=== PATIENT | male | born 2000 | race Hispanic/Latino ===

== ENCOUNTER 2023-07-02 18:43 | Inpatient (IN) | payer OTHER ==
[~2023-07-02] VITALS: Ht 167.6 cm; Wt 107.0 kg
[2023-07-02] MEDS: 0.9%NACL 1000ML 1,000 ML IV SCH ×2 (19:14→23:30)
[2023-07-02 19:23] LABS: BASOPHILS # (AUTO) 0.05 K/uL (0.00-0.20); BASOPHILS % (AUTO) 0.2 % (0.0-5.0); EOSINOPHILS # (AUTO) 0.09 K/uL (0.00-0.70); EOSINOPHILS % (AUTO) 0.4 % (0.0-8.0); HEMATOCRIT 49.3 % (42-54); IMMATURE GRANULOCYTE ABSOLUTE 0.08 K/uL (0-1); LYMPHOCYTES # (AUTO) 1.2 K/uL (1.0-4.8); LYMPHOCYTES % (AUTO) 6.1 % (21.0-51.0); MEAN CORPUSCULAR HEMOGLOBIN 29.7 pg (27.0-33.0); MEAN CORPUSCULAR HGB CONC 35.3 g/dL (32.0-36.0); MEAN CORPUSCULAR VOLUME 84.1 fL (79-99); MONOCYTES # (AUTO) 2.5 K/uL (0.1-1.0); NEUTROPHILS # (AUTO) 16.5 K/uL (1.8-7.7); NEUTROPHILS % (AUTO) 80.9 % (40.0-77.0); PLATELET COUNT (AUTO) 175 K/uL (130-400); RED BLOOD CELL COUNT(AUTO) 5.86 MIL/uL (4.50-6.20); RED CELL DISTRIBUTION WIDTH 13.1 % (11.0-15.5); WHITE BLOOD COUNT (AUTO) 20.5 K/uL (4.8-10.8)
[2023-07-02] MEDS ORDERED: ACETAMINOPHEN 500 MG TABLET PO ONE (19:30)
[2023-07-02] MEDS ORDERED: ONDANSETRON 4MG INJ IVP ONE (19:30)
[2023-07-02 19:31] LABS: ADD UA MICROSCOPIC YES; APPEARANCE,URINE CLEAR (CLEAR); BILIRUBIN,URINE 0.5 mg/dL (NEGATIVE); COLOR,URINE YELLOW (YELLOW); GLUCOSE, URINE (UA) NEGATIVE (NEGATIVE); KETONES,URINE 40 mg/dL (NEGATIVE); LEUKOCYTE ESTERASE ,URINE NEGATIVE Leu/uL (NEGATIVE); NITRATE,URINE NEGATIVE (NEGATIVE); OCCULT BLOOD,URINE SMALL (NEGATIVE); PROTEIN,URINE 50 mg/dL (NEGATIVE); UROBILINOGEN,URINE 12 mg/dL (0.2-1.0)
[2023-07-02 19:32] LABS: BACTERIA,URINE FEW /HPF (None Seen); MUCUS,URINE MOD LPF (None Seen); SQUAMOUS EPITHELIAL CELL,UR RARE /HPF (0-2)
[2023-07-02 19:40] LABS: CREATININE 0.8 mg/dL (0.5-1.5); POTASSIUM 3.3 mmol/L (3.5-5.1)
[2023-07-02 19:41] LABS: SARS-CoV-2, RNA, NAAT NEGATIVE SARS CoV-2 (NEGATIVE)
[2023-07-02 19:45] LABS: ALBUMIN 3.6 g/dL (3.5-5.0); BILIRUBIN,TOTAL 1.5 mg/dL (0.2-1.0); TOTAL PROTEIN, SERUM 8.4 g/dL (6.0-8.3)
[2023-07-02 19:52] LABS: INFLUENZA TYPE A Negative For Type A (NEGATIVE); INFLUENZA TYPE B Negative For Type B (NEGATIVE)
[2023-07-02] MEDS ORDERED: IOHEXOL-350 75 ML VIAL IV ONE (20:02)
[2023-07-02] MEDS ORDERED: KETOROLAC 30MG VIAL (30MG/ML) IVP ONE (21:00)
[2023-07-02] MEDS ORDERED: ZOSYN 3.375GM +NS 50ML IV ONE (21:00)
[2023-07-02] MEDS ORDERED: ONDANSETRON 4MG INJ IV PRN (23:00)
[2023-07-02] MEDS: ZOSYN 3.375GM +NS 50ML IV SCH (23:00)
[2023-07-02 23:08] LABS: AMPHET/METH SCREEN,URINE NEGATIVE (NEGATIVE); BARBITURATE SCREEN, URINE NEGATIVE (NEGATIVE); BENZODIAZEPINES SCREEN,URINE NEGATIVE (NEGATIVE); CANNABINOID SCREEN,URINE POSITIVE (NEGATIVE); COCAINE SCREEN,URINE NEGATIVE (NEGATIVE); OPIATE SCREEN,URINE NEGATIVE (NEGATIVE); PHENCYCLIDINE SCREEN,URINE NEGATIVE (NEGATIVE)
[2023-07-03] VITALS (8 sets, daily range): BP systolic 115–158; BP diastolic 46–78; PULSE 64–95; RESP 18–19; O2SAT 97
[2023-07-03] MEDS: LACTATED RINGERS 1000ML 1,000 ML IV SCH ×4 (00:26→20:22)
[2023-07-03] MEDS: 0.9%NACL 1000ML 1,000 ML IV SCH ×6 (03:30→23:30)
[2023-07-03] MEDS: ZOSYN 3.375GM +NS 50ML IV SCH ×3 (06:13→23:29)
[2023-07-03 06:25] LABS: INR 1.03 (0.85-1.15); PROTHROMBIN TIME 11.9 SEC (9.6-11.6)
[2023-07-03 06:31] LABS: BASOPHILS # (AUTO) 0.04 K/uL (0.00-0.20); BASOPHILS % (AUTO) 0.3 % (0.0-5.0); EOSINOPHILS # (AUTO) 0.21 K/uL (0.00-0.70); EOSINOPHILS % (AUTO) 1.4 % (0.0-8.0); HEMATOCRIT 44.3 % (42-54); LYMPHOCYTES # (AUTO) 1.5 K/uL (1.0-4.8); LYMPHOCYTES % (AUTO) 9.9 % (21.0-51.0); MEAN CORPUSCULAR HEMOGLOBIN 29.6 pg (27.0-33.0); MEAN CORPUSCULAR HGB CONC 34.8 g/dL (32.0-36.0); MONOCYTES # (AUTO) 1.7 K/uL (0.1-1.0); MONOCYTES % (AUTO) 11.8 % (3.0-13.0); NEUTROPHILS # (AUTO) 11.1 K/uL (1.8-7.7); NEUTROPHILS % (AUTO) 75.9 % (40.0-77.0); PLATELET COUNT (AUTO) 152 K/uL (130-400); RED BLOOD CELL COUNT(AUTO) 5.21 MIL/uL (4.50-6.20); RED CELL DISTRIBUTION WIDTH 13.2 % (11.0-15.5); WHITE BLOOD COUNT (AUTO) 14.6 K/uL (4.8-10.8)
[2023-07-03 06:50] LABS: ALBUMIN 2.9 g/dL (3.5-5.0); BILIRUBIN,TOTAL 1.3 mg/dL (0.2-1.0); CREATININE 0.9 mg/dL (0.5-1.5); MAGNESIUM 1.8 mg/dL (1.80-2.40); POTASSIUM 3.5 mmol/L (3.5-5.1); TOTAL PROTEIN, SERUM 7.3 g/dL (6.0-8.3)
[2023-07-03] MEDS: FAMOTIDINE 20MG VIAL IV SCH ×2 (08:37→20:23)
[2023-07-03] MEDS: KETOROLAC 15MG/ML VIAL (15MG/ML) IV PRN ×2 (10:17→15:55)
[2023-07-04] VITALS (8 sets, daily range): BP systolic 120–157; BP diastolic 60–82; PULSE 62–94; RESP 18–20; O2SAT 97
[2023-07-04] MEDS: KETOROLAC 15MG/ML VIAL (15MG/ML) IV PRN ×3 (01:06→16:45)
[2023-07-04] MEDS: LACTATED RINGERS 1000ML 1,000 ML IV SCH ×4 (01:40→21:40)
[2023-07-04] MEDS: 0.9%NACL 1000ML 1,000 ML IV SCH ×2 (02:36→06:40)
[2023-07-04 05:42] LABS: BASOPHILS # (AUTO) 0.02 K/uL (0.00-0.20); BASOPHILS % (AUTO) 0.2 % (0.0-5.0); EOSINOPHILS # (AUTO) 0.24 K/uL (0.00-0.70); EOSINOPHILS % (AUTO) 1.9 % (0.0-8.0); HEMATOCRIT 39.4 % (42-54); IMMATURE GRANULOCYTE ABSOLUTE 0.06 K/uL (0-1); LYMPHOCYTES # (AUTO) 1.4 K/uL (1.0-4.8); LYMPHOCYTES % (AUTO) 11.4 % (21.0-51.0); MEAN CORPUSCULAR HEMOGLOBIN 29.8 pg (27.0-33.0); MEAN CORPUSCULAR HGB CONC 34.3 g/dL (32.0-36.0); MONOCYTES # (AUTO) 1.4 K/uL (0.1-1.0); MONOCYTES % (AUTO) 11.7 % (3.0-13.0); NEUTROPHILS # (AUTO) 9.2 K/uL (1.8-7.7); NEUTROPHILS % (AUTO) 74.3 % (40.0-77.0); PLATELET COUNT (AUTO) 146 K/uL (130-400); RED BLOOD CELL COUNT(AUTO) 4.53 MIL/uL (4.50-6.20); RED CELL DISTRIBUTION WIDTH 13.3 % (11.0-15.5); WHITE BLOOD COUNT (AUTO) 12.3 K/uL (4.8-10.8)
[2023-07-04 06:17] LABS: ALBUMIN 2.6 g/dL (3.5-5.0); BILIRUBIN,TOTAL 1.1 mg/dL (0.2-1.0); CREATININE 0.9 mg/dL (0.5-1.5); POTASSIUM 3.4 mmol/L (3.5-5.1); TOTAL PROTEIN, SERUM 6.7 g/dL (6.0-8.3)
[2023-07-04] MEDS: ZOSYN 3.375GM +NS 50ML IV SCH ×3 (06:38→22:13)
[2023-07-04] MEDS ORDERED: MAGNESIUM 2GM PREMIX 50ML 50 ML IV PRN (07:30)
[2023-07-04] MEDS: FAMOTIDINE 20MG VIAL IV SCH ×2 (08:18→20:09)
[2023-07-04] MEDS: POTASSIUM CHLORIDE 20MEQ/100ML 100 ML IV PRN (09:23)
[2023-07-04] MEDS ORDERED: MORPHINE 4 MG SYG ONE (20:16)
[2023-07-04] MEDS ORDERED: MORPHINE 4 MG SYG IVP PRN (20:30)
[2023-07-04] MEDS ORDERED: MORPHINE 4 MG SYG IVP ONE (21:00)
[2023-07-05] VITALS (19 sets, daily range): BP systolic 133–191; BP diastolic 68–123; PULSE 62–93; RESP 13–20; O2SAT 99
[2023-07-05] MEDS: KETOROLAC 15MG/ML VIAL (15MG/ML) IV PRN ×3 (01:33→22:00)
[2023-07-05] MEDS: LACTATED RINGERS 1000ML 1,000 ML IV SCH ×3 (03:32→17:40)
[2023-07-05] MEDS: ZOSYN 3.375GM +NS 50ML IV SCH ×3 (06:03→22:05)
[2023-07-05] MEDS: FAMOTIDINE 20MG VIAL IV SCH ×2 (10:15→22:01)
[2023-07-05] MEDS ORDERED: BUPIVACAINE/PF 0.25% 30ML VIAL IJ ONE ×2 (12:13→15:22)
[2023-07-05] MEDS ORDERED: LIDOCAINE HCL 1% 20 ML VIAL ONE (12:13)
[2023-07-05] MEDS ORDERED: PROPOFOL 10 MG/ML 20ML VIAL IV ONE (12:17)
[2023-07-05] MEDS ORDERED: SUCCINYLCHOLINE CHLORIDE 20 MG/ML 10 ML VIAL ONE (12:17)
[2023-07-05] MEDS ORDERED: LIDOCAINE PF 100MG/5ML (2%) SYRINGE 5ML ONE (12:17)
[2023-07-05] MEDS ORDERED: ROCURONIUM BROMIDE 10MG/1ML 5ML VL ONE ×3 (12:18→16:29)
[2023-07-05] MEDS ORDERED: DEXAMETHASONE SOD PHOSPHATE 10MG/ML 1ML VIAL ONE (12:18)
[2023-07-05] MEDS ORDERED: ONDANSETRON 4MG INJ ONE (12:18)
[2023-07-05] MEDS ORDERED: NEOSTIGMINE METHYLSULFATE 1MG/ML IV ONE (12:18)
[2023-07-05] MEDS ORDERED: GLYCOPYRROLATE 0.2 MG/ML 5 ML VIAL ONE (12:18)
[2023-07-05] MEDS ORDERED: MIDAZOLAM HCL 1 MG/ML 2ML VIAL ONE ×2 (12:18→14:56)
[2023-07-05] MEDS ORDERED: FENTANYL CITRATE PF 50 MCG/1 ML 2ML VIAL ONE ×4 (12:19→17:05)
[2023-07-05] MEDS ORDERED: LACTATED RINGERS 1000ML 1,000 ML IV ONE (13:33)
[2023-07-05] MEDS ORDERED: ZOSYN 3.375GM+NS 50ML 50 ML ONE (14:45)
[2023-07-05] MEDS ORDERED: LIDOCAINE HCL 1% 20 ML VIAL INJ ONE (15:22)
[2023-07-06] VITALS (10 sets, daily range): BP systolic 139–152; BP diastolic 77–95; PULSE 63–80; RESP 18–19; TEMP 98.1; O2SAT 99
[2023-07-06] MEDS: LACTATED RINGERS 1000ML 1,000 ML IV SCH ×4 (00:48→21:51)
[2023-07-06 04:19] LABS: BASOPHILS # (AUTO) 0.01 K/uL (0.00-0.20); BASOPHILS % (AUTO) 0.1 % (0.0-5.0); IMMATURE GRANULOCYTE ABSOLUTE 0.05 K/uL (0-1); LYMPHOCYTES # (AUTO) 0.5 K/uL (1.0-4.8); LYMPHOCYTES % (AUTO) 4.8 % (21.0-51.0); MEAN CORPUSCULAR HEMOGLOBIN 29.9 pg (27.0-33.0); MEAN CORPUSCULAR HGB CONC 35.3 g/dL (32.0-36.0); MEAN CORPUSCULAR VOLUME 84.8 fL (79-99); MONOCYTES # (AUTO) 0.6 K/uL (0.1-1.0); MONOCYTES % (AUTO) 5.9 % (3.0-13.0); NEUTROPHILS # (AUTO) 9.2 K/uL (1.8-7.7); NEUTROPHILS % (AUTO) 88.7 % (40.0-77.0); PLATELET COUNT (AUTO) 194 K/uL (130-400); RED BLOOD CELL COUNT(AUTO) 4.48 MIL/uL (4.50-6.20); RED CELL DISTRIBUTION WIDTH 12.9 % (11.0-15.5); WHITE BLOOD COUNT (AUTO) 10.4 K/uL (4.8-10.8)
[2023-07-06 04:37] LABS: ALBUMIN 2.4 g/dL (3.5-5.0); BILIRUBIN,DIRECT 4.7 mg/dL (0.0-0.3); BILIRUBIN,TOTAL 5.6 mg/dL (0.2-1.0); CREATININE 0.7 mg/dL (0.5-1.5); POTASSIUM 3.6 mmol/L (3.5-5.1); TOTAL PROTEIN, SERUM 6.6 g/dL (6.0-8.3)
[2023-07-06] MEDS: ZOSYN 3.375GM +NS 50ML IV SCH ×3 (06:42→21:50)
[2023-07-06] MEDS: KETOROLAC 15MG/ML VIAL (15MG/ML) IV PRN ×2 (07:44→21:50)
[2023-07-06] MEDS: FAMOTIDINE 20MG VIAL IV SCH ×2 (07:44→21:51)
[2023-07-06] MEDS: ACETAMINOPHEN 325 MG TAB PO PRN (07:45)
[2023-07-06] MEDS ORDERED: GADOTERATE MEGLUMINE 10 MMOL/20 ML VIAL IV ONE (11:51)
[2023-07-06] MEDS: MORPHINE 2 MG SYG IVP PRN (14:51)
[2023-07-07] VITALS (25 sets, daily range): BP systolic 126–178; BP diastolic 49–111; PULSE 55–82; RESP 12–20; O2SAT 98
[2023-07-07] MEDS: LACTATED RINGERS 1000ML 1,000 ML IV SCH ×2 (03:00→09:42)
[2023-07-07 04:01] LABS: BASOPHILS # (AUTO) 0.02 K/uL (0.00-0.20); BASOPHILS % (AUTO) 0.3 % (0.0-5.0); EOSINOPHILS # (AUTO) 0.05 K/uL (0.00-0.70); EOSINOPHILS % (AUTO) 0.7 % (0.0-8.0); HEMATOCRIT 37.3 % (42-54); IMMATURE GRANULOCYTE ABSOLUTE 0.04 K/uL (0-1); LYMPHOCYTES # (AUTO) 1.7 K/uL (1.0-4.8); LYMPHOCYTES % (AUTO) 23.9 % (21.0-51.0); MEAN CORPUSCULAR HEMOGLOBIN 29.7 pg (27.0-33.0); MEAN CORPUSCULAR HGB CONC 34.9 g/dL (32.0-36.0); MEAN CORPUSCULAR VOLUME 85.4 fL (79-99); MONOCYTES # (AUTO) 0.7 K/uL (0.1-1.0); MONOCYTES % (AUTO) 10.6 % (3.0-13.0); NEUTROPHILS # (AUTO) 4.4 K/uL (1.8-7.7); NEUTROPHILS % (AUTO) 63.9 % (40.0-77.0); PLATELET COUNT (AUTO) 196 K/uL (130-400); RED BLOOD CELL COUNT(AUTO) 4.37 MIL/uL (4.50-6.20); RED CELL DISTRIBUTION WIDTH 13.2 % (11.0-15.5); WHITE BLOOD COUNT (AUTO) 6.9 K/uL (4.8-10.8)
[2023-07-07 04:21] LABS: ALBUMIN 2.3 g/dL (3.5-5.0); BILIRUBIN,DIRECT 3.1 mg/dL (0.0-0.3); BILIRUBIN,TOTAL 3.9 mg/dL (0.2-1.0); CREATININE 0.7 mg/dL (0.5-1.5); POTASSIUM 3.1 mmol/L (3.5-5.1); TOTAL PROTEIN, SERUM 6.1 g/dL (6.0-8.3)
[2023-07-07] MEDS: KETOROLAC 15MG/ML VIAL (15MG/ML) IV PRN ×2 (06:44→15:02)
[2023-07-07] MEDS: ZOSYN 3.375GM +NS 50ML IV SCH ×3 (06:46→22:47)
[2023-07-07] MEDS: POTASSIUM CHLORIDE 20MEQ/100ML 100 ML IV PRN (06:49)
[2023-07-07] MEDS ORDERED: IOHEXOL-350 50ML VIAL IV ONE (08:27)
[2023-07-07] MEDS ORDERED: LIDOCAINE HCL-MPF 1% 2ML VIAL IV STA (08:50)
[2023-07-07] MEDS: FAMOTIDINE 20MG VIAL IV SCH ×2 (09:00→19:40)
[2023-07-07] MEDS ORDERED: LIDOCAINE HCL 1% 20 ML VIAL ONE (09:01)
[2023-07-07] MEDS ORDERED: POTASSIUM CHLORIDE 20MEQ/100ML 100 ML IV ONE (09:11)
[2023-07-07] MEDS ORDERED: INDOMETHACIN 100 MG SUPP.RECT RC ONE (09:30)
[2023-07-07] MEDS ORDERED: ROCURONIUM BROMIDE 10MG/1ML 5ML VL ONE (10:00)
[2023-07-07] MEDS ORDERED: SUCCINYLCHOLINE CHLORIDE 20 MG/ML 10 ML VIAL ONE (10:00)
[2023-07-07] MEDS ORDERED: PROPOFOL 10 MG/ML 20ML VIAL IV ONE (10:01)
[2023-07-07] MEDS ORDERED: FENTANYL CITRATE PF 50 MCG/1 ML 2ML VIAL ONE (10:01)
[2023-07-07] MEDS ORDERED: ONDANSETRON 4MG INJ ONE (10:41)
[2023-07-07] MEDS ORDERED: DEXAMETHASONE SOD PHOSPHATE 10MG/ML 1ML VIAL ONE (10:42)
[2023-07-07] MEDS ORDERED: NEOSTIGMINE METHYLSULFATE 1MG/ML IV ONE (10:42)
[2023-07-07] MEDS ORDERED: GLYCOPYRROLATE 0.2 MG/ML 5 ML VIAL ONE (10:42)
[2023-07-07] MEDS ORDERED: POTASSIUM CHLORIDE 10% ELIXIR 20 MEQ/15 ML UDCUP PO PRN (14:00)
[2023-07-07] MEDS: KCL 20 MEQ ERTAB PO PRN (14:26)
[2023-07-07] MEDS: MORPHINE 2 MG SYG IVP PRN ×2 (15:51→19:44)
[2023-07-07] MEDS ORDERED: SIMETHICONE 80 MG TAB.CHEW PO ONE (17:30)
[2023-07-07] MEDS: ACETAMINOPHEN 325 MG TAB PO PRN (19:41)
[2023-07-07] MEDS ORDERED: CLONIDINE HCL 0.1 MG TABLET PO PRN (21:00)
[2023-07-08] MEDS: ACETAMINOPHEN 325 MG TAB PO PRN ×3 (00:31→19:45)
[2023-07-08 00:33] VITALS: BP 156/97; PULSE 85; RESP 18
[2023-07-08 04:25] VITALS: BP 143/84; PULSE 71; RESP 18
[2023-07-08 04:55] LABS: BASOPHILS # (AUTO) 0.03 K/uL (0.00-0.20); BASOPHILS % (AUTO) 0.4 % (0.0-5.0); EOSINOPHILS # (AUTO) 0.05 K/uL (0.00-0.70); EOSINOPHILS % (AUTO) 0.6 % (0.0-8.0); HEMATOCRIT 37.4 % (42-54); IMMATURE GRANULOCYTE ABSOLUTE 0.08 K/uL (0-1); LYMPHOCYTES # (AUTO) 1.7 K/uL (1.0-4.8); LYMPHOCYTES % (AUTO) 19.7 % (21.0-51.0); MEAN CORPUSCULAR HEMOGLOBIN 29.6 pg (27.0-33.0); MEAN CORPUSCULAR VOLUME 84.4 fL (79-99); MONOCYTES # (AUTO) 0.8 K/uL (0.1-1.0); MONOCYTES % (AUTO) 9.3 % (3.0-13.0); NEUTROPHILS # (AUTO) 5.9 K/uL (1.8-7.7); NEUTROPHILS % (AUTO) 69.1 % (40.0-77.0); PLATELET COUNT (AUTO) 226 K/uL (130-400); RED BLOOD CELL COUNT(AUTO) 4.43 MIL/uL (4.50-6.20); RED CELL DISTRIBUTION WIDTH 13.2 % (11.0-15.5); WHITE BLOOD COUNT (AUTO) 8.5 K/uL (4.8-10.8)
[2023-07-08 05:17] LABS: ALBUMIN 2.4 g/dL (3.5-5.0); BILIRUBIN,DIRECT 4.3 mg/dL (0.0-0.3); BILIRUBIN,TOTAL 5.2 mg/dL (0.2-1.0); CREATININE 0.8 mg/dL (0.5-1.5); POTASSIUM 3.4 mmol/L (3.5-5.1); TOTAL PROTEIN, SERUM 6.4 g/dL (6.0-8.3)
[2023-07-08] MEDS: ZOSYN 3.375GM +NS 50ML IV SCH ×3 (06:04→22:27)
[2023-07-08 08:00] VITALS: BP 156/79; PULSE 67; RESP 18; O2SAT 100
[2023-07-08] MEDS: FAMOTIDINE 20MG VIAL IV SCH ×2 (09:00→19:45)
[2023-07-08] MEDS: LACTATED RINGERS 1000ML 1,000 ML IV SCH (09:00)
[2023-07-08] MEDS ORDERED: LORAZEPAM 0.5 MG TABLET PO PRN (10:30)
[2023-07-08 12:00] VITALS: BP 162/78; PULSE 67; RESP 18
[2023-07-08 15:46] VITALS: BP 139/72; PULSE 75; RESP 16
[2023-07-08 20:00] VITALS: BP 152/91; PULSE 66; RESP 17; O2SAT 99
[2023-07-09] VITALS (9 sets, daily range): BP systolic 130–151; BP diastolic 62–98; PULSE 66–85; RESP 16–20; O2SAT 98–99
[2023-07-09 05:23] LABS: BASOPHILS # (AUTO) 0.05 K/uL (0.00-0.20); BASOPHILS % (AUTO) 0.6 % (0.0-5.0); EOSINOPHILS # (AUTO) 0.13 K/uL (0.00-0.70); EOSINOPHILS % (AUTO) 1.6 % (0.0-8.0); HEMATOCRIT 39.6 % (42-54); IMMATURE GRANULOCYTE ABSOLUTE 0.17 K/uL (0-1); LYMPHOCYTES % (AUTO) 24.2 % (21.0-51.0); MEAN CORPUSCULAR HEMOGLOBIN 29.8 pg (27.0-33.0); MEAN CORPUSCULAR HGB CONC 34.8 g/dL (32.0-36.0); MEAN CORPUSCULAR VOLUME 85.5 fL (79-99); MONOCYTES # (AUTO) 0.7 K/uL (0.1-1.0); MONOCYTES % (AUTO) 8.3 % (3.0-13.0); NEUTROPHILS # (AUTO) 5.1 K/uL (1.8-7.7); NEUTROPHILS % (AUTO) 63.2 % (40.0-77.0); PLATELET COUNT (AUTO) 223 K/uL (130-400); RED BLOOD CELL COUNT(AUTO) 4.63 MIL/uL (4.50-6.20); RED CELL DISTRIBUTION WIDTH 13.7 % (11.0-15.5); WHITE BLOOD COUNT (AUTO) 8.1 K/uL (4.8-10.8)
[2023-07-09 05:42] LABS: ALBUMIN 2.6 g/dL (3.5-5.0); BILIRUBIN,TOTAL 2.7 mg/dL (0.2-1.0); CREATININE 1.1 mg/dL (0.5-1.5); POTASSIUM 3.4 mmol/L (3.5-5.1); TOTAL PROTEIN, SERUM 6.7 g/dL (6.0-8.3)
[2023-07-09] MEDS: ZOSYN 3.375GM +NS 50ML IV SCH ×3 (06:13→22:53)
[2023-07-09] MEDS: LACTATED RINGERS 1000ML 1,000 ML IV SCH ×2 (07:54→08:15)
[2023-07-09] MEDS: FAMOTIDINE 20MG VIAL IV SCH ×2 (08:14→19:31)
[2023-07-10 03:55] LABS: BASOPHILS # (AUTO) 0.05 K/uL (0.00-0.20); BASOPHILS % (AUTO) 0.6 % (0.0-5.0); EOSINOPHILS % (AUTO) 2.3 % (0.0-8.0); HEMATOCRIT 41.2 % (42-54); IMMATURE GRANULOCYTE ABSOLUTE 0.26 K/uL (0-1); LYMPHOCYTES # (AUTO) 2.2 K/uL (1.0-4.8); LYMPHOCYTES % (AUTO) 24.9 % (21.0-51.0); MEAN CORPUSCULAR HEMOGLOBIN 29.8 pg (27.0-33.0); MEAN CORPUSCULAR HGB CONC 34.7 g/dL (32.0-36.0); MEAN CORPUSCULAR VOLUME 85.8 fL (79-99); MONOCYTES # (AUTO) 0.7 K/uL (0.1-1.0); MONOCYTES % (AUTO) 7.8 % (3.0-13.0); NEUTROPHILS # (AUTO) 5.3 K/uL (1.8-7.7); NEUTROPHILS % (AUTO) 61.4 % (40.0-77.0); PLATELET COUNT (AUTO) 221 K/uL (130-400); RED CELL DISTRIBUTION WIDTH 13.7 % (11.0-15.5); WHITE BLOOD COUNT (AUTO) 8.7 K/uL (4.8-10.8)
[2023-07-10 04:16] VITALS: BP 127/60; PULSE 67; RESP 18
[2023-07-10 04:27] LABS: ALBUMIN 2.6 g/dL (3.5-5.0); BILIRUBIN,DIRECT 1.3 mg/dL (0.0-0.3); BILIRUBIN,TOTAL 1.8 mg/dL (0.2-1.0); CREATININE 0.8 mg/dL (0.5-1.5); POTASSIUM 3.2 mmol/L (3.5-5.1); TOTAL PROTEIN, SERUM 6.6 g/dL (6.0-8.3)
[2023-07-10] MEDS: ZOSYN 3.375GM +NS 50ML IV SCH (06:19)
[2023-07-10] MEDS: KCL 20 MEQ ERTAB PO PRN (06:19)
[2023-07-10 08:00] VITALS: BP 146/76; PULSE 78; RESP 16; O2SAT 96
[2023-07-10] MEDS: FAMOTIDINE 20MG VIAL IV SCH (09:41)
== END 2023-07-10 11:00 | disposition home or self-care (01) | DRG 417 ==
LOC: EDH 18:43 → EDHIP 18:44 → 3DH 23:36
PROVIDERS: ADMIT Hospitalist; ATTEND Hospitalist
PROC: 0FT44ZZ Resection of Gallbladder, Percutaneous Endoscopic Approach (ICD-10-PCS; principal; 2023-07-05 14:55)
PROC: 0F798ZZ Dilation of Common Bile Duct, Via Natural or Artificial Opening Endoscopic (ICD-10-PCS; 2023-07-07)
PROC: 0FC98ZZ Extirpation of Matter from Common Bile Duct, Via Natural or Artificial Opening Endoscopic (ICD-10-PCS; 2023-07-07)
PROC: XFJB8A7 Inspection of Hepatobiliary Duct using Single-use Duodenoscope, New Technology Group 7 (ICD-10-PCS; 2023-07-07)
PROC: XFJD8A7 Inspection of Pancreatic Duct using Single-use Duodenoscope, New Technology Group 7 (ICD-10-PCS; 2023-07-07)
PROC: BF131ZZ Fluoroscopy of Gallbladder and Bile Ducts using Low Osmolar Contrast (ICD-10-PCS; 2023-07-07)
DX: K80.62 Calculus of gallbladder and bile duct with acute cholecystitis without obstruction (principal); R65.11 Systemic inflammatory response syndrome (SIRS) of non-infectious origin with acute organ dysfunction; N39.0 Urinary tract infection, site not specified; E87.1 Hypo-osmolality and hyponatremia; K76.0 Fatty (change of) liver, not elsewhere classified; E86.0 Dehydration; E87.6 Hypokalemia; Z20.822 Contact with and (suspected) exposure to COVID-19; K66.0 Peritoneal adhesions (postprocedural) (postinfection); K82.8 Other specified diseases of gallbladder; E66.9 Obesity, unspecified; E86.1 Hypovolemia; Z68.38 Body mass index [BMI] 38.0-38.9, adult
CPT/HCPCS: 36415; 43262; 43264; 74178; 74181; 74183; 74330; 76705; 80048; 80053; 80061; 80076; 80305; 81001; 83036; 83605; 83690; 83735; 84132; 84145; 84484; 85025; 85610; 85730; 86850; 86900; 86901; 87040; 87635; 87804; 88304; 93005; C1773; G0378; J0330; J1100; J1885; J2001; J2250; J2270; J2405; J2543; J2704; J2710; J3010; J3480; J3490; J7030; J7120; Q9967; A4215; A4216; A4222; A4223; A4649; A4657; A4663; A4930; A6206; A7002; A9575; C1769; J0665; S8037